=== PATIENT | male | born 1970 | race Caucasian/White ===

== ENCOUNTER 2016-08-08 14:30 | Emergency (ER) | payer OTHER ==
[2016-08-08 14:50] VITALS: TEMP 99.2; BMI 34.0
[2016-08-08] MEDS ORDERED: PANTOPRAZOLE SODIUM 40 MG in SODIUM CHLORIDE 100 ML IVPB ONE (15:42)
--- NOTE | 2016-08-08 15:42 | PDOC ---
[id number] No Limitations <Nigel Gaytan - Last Filed: 08/08/16 20:21> <Shukri Kemp - Last Filed: 08/12/16 09:33> - General Chief Complaint: Chest Pain Stated Complaint: CHEST TIGHTNESS Time Seen by Provider: 08/08/16 15:33 - History of Present Illness Initial Comments: 08/08/16 16:22 The patient is a 46 year old male with a significant past medical history of type 2 diabetes (takes januvia), low good cholesterol levels, and high blood pressure who presents to the emergency department today complaining of chest tightness, anxiety, and abdominal pain since this morning. The patient states that he drank ETOH last night and woke up this morning experiencing symptoms. The patient reports that the chest tightness is non-radiating. The patient states that his abdominal pain is diffuse and accompanied by increased flatulence.The patient states that he feels dehydrated despite drinking plenty of fluids today. The patient also reports difficulty sleeping for the past 3 nights and recent weight gain. The patient notes that he has similar symptoms affiliated with his anxiety previously. The patient states that he has had a lot of stress at work and notes symptoms may be related. The patient denies family history of heart disease. The patient denies cough and shortness of breath. (Nigel Gaytan) Past History <Nigel Gaytan - Last Filed: 08/08/16 20:21> - Past Medical History Diabetes: Yes (TYPE II) HTN: Yes Hypercholesterolemia: Yes Other medical history: SLEEP APNEA - Psycho/Social/Smoking Cessation Hx Anxiety: Yes Suicidal Ideation: No Smoking History: Never smoked Hx Alcohol Use: Yes (MORE THAN SOCIAL) Drug/Substance Use Hx: No Substance Use Type: Alcohol <Shukri Kemp - Last Filed: 08/12/16 09:33> - Past Medical History Allergies/Adverse Reactions: Allergies Allergy/AdvReac Type Severity Reaction Status Date / Time No Known Allergies Allergy Verified 08/08/16 14:32 Home Medications: Ambulatory Orders Lisinopril [Prinivil] 10 mg PO DAILY 08/08/16 Pravastatin Sodium [Pravachol (Nf)] 20 mg PO DAILY 08/08/16 Review of Systems - Review of Systems Able to Perform ROS?: Yes <Nigel Gaytan - Last Filed: 08/08/16 20:21> <Shukri Kemp - Last Filed: 08/12/16 09:33> - Review of Systems Comments:: 08/08/16 16:26 CONSTITUTIONAL: Absent: fever, chills, diaphoresis, generalized weakness, malaise, loss of appetite HEENT: Absent: rhinorrhea, nasal congestion, throat pain, throat swelling, difficulty swallowing, mouth swelling, ear pain, eye pain, visual Changes CARDIOVASCULAR: Present: chest tightness Absent: syncope, palpitations, irregular heart rate, lightheadedness, peripheral edema RESPIRATORY: Absent: cough, shortness of breath, dyspnea with exertion, orthopnea, wheezing, stridor, hemoptysis GASTROINTESTINAL: Present: abdominal pain, increase flatulence Absent: nausea, vomiting, diarrhea, constipation, melena, hematochezia GENITOURINARY: Absent: dysuria, frequency, urgency, hesitancy, hematuria, flank pain, genital pain MUSCULOSKELETAL: Absent: myalgia, arthralgia, joint swelling SKIN: Absent: rash, itching, pallor HEMATOLOGIC/IMMUNOLOGIC: Absent: easy bleeding, easy bruising, lymphadenopathy, frequent infections ENDOCRINE: Present: unexplained weight gain Absent:unexplained weight loss, heat intolerance, cold intolerance NEUROLOGIC: Absent: headache, focal weakness or paresthesias, dizziness, unsteady gait, seizure, mental status changes, bladder or bowel incontinence PSYCHIATRIC: Present: anxiety Absent: depression, suicidal or homicidal ideation, hallucinations. (Nigel Gaytan) *Physical Exam <Nigel Gaytan - Last Filed: 08/08/16 20:21> <Shukri Kemp - Last Filed: 08/12/16 09:33> - Vital Signs Last Vital Signs Temp Pulse Resp BP Pulse Ox 99.2 F 88 16 143/83 99 08/08/16 14:31 08/08/16 16:30 08/08/16 16:30 08/08/16 16:30 08/08/16 16:30 - Physical Exam Comments: 08/08/16 16:21 GENERAL: Well developed, moderate obesity. Awake and alert. In no acute distress. HEENT: Normocephalic, atraumatic. PERRLA, EOMI. No conjunctival pallor. Sclera are non- icteric. Moist mucous membranes. Oropharynx is clear. NECK: Supple. Full ROM. No JVD. Carotid pulses 2+ and symmetric, without bruits. No thyromegaly. No lymphadenopathy. CARDIOVASCULAR: Regular rate and rhythm. No murmurs, rubs, or gallops. Distal pulses are 2+ and symmetric. PULMONARY: No evidence of respiratory distress. Lungs clear to auscultation bilaterally. No wheezing, rales or rhonchi. ABDOMINAL: Soft. Non-tender. Non-distended. No rebound or guarding. No organomegaly. Normoactive bowel sounds. MUSCULOSKELETAL Normal range of motion at all joints. No bony deformities or tenderness. No CVA tenderness. EXTREMITIES: No cyanosis. No clubbing. No edema. No calf tenderness. SKIN: Warm and dry. Normal capillary refill. No rashes. No jaundice. NEUROLOGICAL: Alert, awake, appropriate. Cranial nerves 2-12 intact. No deficits to light touch and temperature in face, upper extremities and lower extremities. No motor deficits in the in face, upper extremities and lower extremities. Normoreflexic in the upper and lower extremities. Normal speech. ( Nigel Gaytan) ED Treatment Course - LABORATORY CBC & Chemistry Diagram: 08/08/16 16:18 08/08/16 16:18 <Nigel Gaytan - Last Filed: 08/08/16 20:21> - LABORATORY CBC & Chemistry Diagram: 08/08/16 16:18 08/08/16 16:18 <Shukri Kemp - Last Filed: 08/12/16 09:33> - ADDITIONAL ORDERS Additional order review: 08/08/16 16:18 RBC 5.23 MCV 88.3 MCHC 33.0 RDW 12.6 MPV 8.1 Neutrophils % 75.0 Lymphocytes % 14.5 Monocytes % 9.5 Eosinophils % 0.4 Basophils % 0.6 - Medications Given in the ED: ED Medications Discontinued Medications Generic Name Dose Route Start Last Admin Trade Name Freq PRN Reason Stop Dose Admin Pantoprazole Sodium 40 mg/ 100 mls @ 200 mls/hr 08/08/16 15:42 08/08/16 16:18 Sodium Chloride IVPB 08/08/16 16:11 200 mls/hr ONCE ONE Administration Medical Decision Making <Nigel Gaytan - Last Filed: 08/08/16 20:21> <Shukri Kemp - Last Filed: 08/12/16 09:33> - Medical Decision Making 08/08/16 Laboratories reviewed: CBC chemistries and cardiac enzymes without significant abnormalities, other than a mildly elevated glucose of 217 EKG reviewed: Normal sinus rhythm 87/m. Normal axes and intervals. Borderline LVH. No ST-T wave changes or other indication of ischemia The patient is somewhat improved after receiving Protonix No sign of acute cardiac event on EKG or enzymes. The etiology of the chest discomfort may be related to anxiety, GERD, or alcohol. However, the patient is advised to return to the ER if the pain increases or other symptoms such as nausea, perspiration, shortness of breath, or dizziness ensue for further evaluation. He is also advised to follow up with a semiconductor wafers tester and consider a stress test. He is fully ambulatory, in no pain or other distress upon discharge with his to follow up as directed 08/12/16 09:32 (Shukri Kemp) *DC/Admit/Observation/Transfer <Nigel Gaytan - Last Filed: 08/08/16 20:21> - Discharge Dispostion Admit: No <Shukri Kemp - Last Filed: 08/12/16 09:33> Diagnosis at time of Disposition: Chest pain Qualifiers: Chest pain type: unspecified Qualified Code(s): R07.9 - Chest pain, unspecified - Discharge Dispostion Disposition: HOME Condition at time of disposition: Good - Patient Instructions Printed Discharge Instructions: DI for Atypical Chest Pain, DI for Anxiety -- Adult, DI for Gastroesophageal Reflux Disease (GERD) Additional Instructions: Preliminary evaluation in the emergency room, including EKG and cardiac enzymes , show no sign heart disease, but if symptoms worsen or you experience other symptoms such as nausea perspiration shortness of breath or dizziness, you should return to the ER for further evaluation. Anxiety or reflux of acid from the stomach could be responsible for his symptoms. Try to reduce stress levels and consider taking Nexium or Prilosec for his stomach. Consider cardiology evaluation and stress test for definitive diagnosis. - Attestations Scribe Attestion: 08/08/16 16:20 Documentation prepared by Nigel Gaytan, acting as medical interpreter for Justo, Shukri Sheridan MD. (Nigel Gaytan)
[2016-08-08] MEDS ORDERED: PANTOPRAZOLE SODIUM 40 MG VIAL ONE (16:06)
[2016-08-08 16:43] LABS: BASOPHIL 0.6 % (0-2.0); EOSINOPHIL 0.4 % (0-4.5); MCH 29.2 pg (25.7-33.7); MEAN CELL VOLUME 88.3 fl (80-96); MEAN PLT VOLUME 8.1 fl (7.5-11.1); PLATELET COUNT 250 K/MM3 (134-434); RDW 12.6 % (11.9-15.9); WHITE BLOOD COUNT 7.8 K/mm3 (4.0-10.0)
[2016-08-08 17:00] LABS: CPK(DFH) 111 IU/L (38-174)
[2016-08-08 17:01] LABS: ALBUMIN 4.8 g/dl (3.5-5.0); ALK PHOS 63 U/L (32-92); ANION GAP 8 (8-16); BILIRUBIN,TOTAL 0.6 mg/dl (0.2-1.0); CALCIUM 9.4 mg/dl (8.4-10.2); CO2 25 mmol/L (22-28); CREATININE 0.8 mg/dl (0.6-1.3); GLUCOSE,RANDOM 217 mg/dl (74-106); SGOT/AST 44 U/L (10-42); SGPT/ALT 55 U/L (10-40); TOT PROT 8.1 g/dl (6.4-8.3)
[2016-08-08 17:18] LABS: TROPONIN I (DFP) < 0.03 ng/ml (0.03-0.50)
[2016-08-08 17:36] VITALS: BP 143/83; PULSE 88
--- NOTE | 2016-08-10 10:11 | EKG ---
Test Reason : Blood Pressure : / mmHG Vent. Rate : 087 BPM Atrial Rate : 087 BPM P-R Int : 162 ms QRS Dur : 096 ms QT Int : 372 ms P-R-T Axes : 027 038 012 degrees QTc Int : 447 ms NORMAL SINUS RHYTHM MINIMAL VOLTAGE CRITERIA FOR LVH, MAY BE NORMAL VARIANT BORDERLINE ECG NO PREVIOUS ECGS AVAILABLE Confirmed by SWETHA LAW, VEE ([id number]) on 08/10/2016 10:10:56 AM Referred By: POORNIMA GONZALES Overread By: VEE POSADA MD
== END 2016-08-08 17:39 | disposition home or self-care (01) ==
LOC: FER 14:30
PROC: 3E033GC Introduction of Other Therapeutic Substance into Peripheral Vein, Percutaneous Approach (ICD-10-PCS; principal; 2016-08-08)
DX: R07.9 Chest pain, unspecified (principal); K21.9 Gastro-esophageal reflux disease without esophagitis; G47.30 Sleep apnea, unspecified; I10 Essential (primary) hypertension; E78.00 Pure hypercholesterolemia, unspecified; E11.9 Type 2 diabetes mellitus without complications
CPT/HCPCS: 36415; 80053; 82550; 84484; 85025; 93005; 99283-25